=== PATIENT | male | born 1990 | race Caucasian/White ===

== ENCOUNTER 2018-09-01 12:10 | Emergency (ER) | payer MEDICAID ==
[~2018-09-01] VITALS: Ht 175.3 cm; Wt 87.1 kg
--- NOTE | 2018-09-01 12:10 | NUR ---
Patient to ER bed 01 for evaluation. Side rails up.
--- NOTE | 2018-09-01 12:15 | NUR ---
Pt AAOx4 BIB [employer] for medical clearance due to diagnoses of diabetes and cholesterol. Pt complains of 6/10 chronic back pain. No other complaints per pt/noted. Will continue to monitor.
[2018-09-01 12:16] VITALS: BP_SYST 132
--- NOTE | 2018-09-01 12:26 | NUR ---
ER Dr. CARVAJAL at bedside examining patient.
[2018-09-01 12:34] VITALS: BP_SYST 128
--- NOTE | 2018-09-01 12:34 | NUR ---
Patient given written and verbal discharge instructions and verbalizes understanding. ER MD Elaine discussed with patient the results and treatment provided. Patient in stable condition. ID arm band removed. No Rx given. Patient educated on pain management and to follow up with PMD. Pain Scale 0. Opportunity for questions provided and answered. Medication side effect fact sheet provided.
== END 2018-09-01 12:34 ==
LOC: SED 12:10
DX: Z02.89 Encounter for other administrative examinations (principal); E11.9 Type 2 diabetes mellitus without complications; Z88.8 Allergy status to other drugs, medicaments and biological substances
CPT/HCPCS: 99283